=== PATIENT | male | born 1995 | race Two or more races ===

== ENCOUNTER 2021-03-22 01:42 | Emergency (ER) | payer OTHER, MEDICAID ==
[~2021-03-22] VITALS: Ht 170.2 cm; Wt 96.2 kg
[2021-03-22 01:44] VITALS: BP 142/79
[2021-03-22] MEDS ORDERED: KETOROLAC 30 MG/ML VIAL IM ONE (02:30)
[2021-03-22] MEDS ORDERED: CYCL-711 PO (03:27)
[2021-03-22] MEDS ORDERED: NAPR-54 PO (03:27)
[2021-03-22 03:38] VITALS: BP 131/83
== END 2021-03-22 03:35 | disposition home or self-care (01) ==
LOC: MED 01:42
DX: S16.1XXA Strain of muscle, fascia and tendon at neck level, initial encounter (principal); M54.50 Low back pain, unspecified; Z88.0 Allergy status to penicillin; Z79.899 Other long term (current) drug therapy; Z98.890 Other specified postprocedural states; V89.2XXA Person injured in unspecified motor-vehicle accident, traffic, initial encounter; Y93.89 Activity, other specified; Y92.89 Other specified places as the place of occurrence of the external cause; Y99.8 Other external cause status
CPT/HCPCS: 72040; 72100; 96372; 99284; J1885

== ENCOUNTER 2021-04-16 14:38 | Emergency (ER) | payer MEDICAID, OTHER ==
[~2021-04-16] VITALS: Ht 170.2 cm; Wt 99.8 kg
[~2021-04-16 14:38] MED LIST: CYCL-711 PO; NAPR-54 PO
[2021-04-16 16:05] VITALS: BP 156/75
--- NOTE | 2021-04-16 16:12 | NUR ---
Pt to chair C
[2021-04-16] MEDS ORDERED: ERYT5OIN51 OP (17:01)
--- NOTE | 2021-04-16 17:17 | NUR ---
Patient discharged with v/s stable. Written and verbal after care instructions given and explained. Patient alert, oriented and verbalized understanding of instructions. Ambulatory with steady gait. All questions addressed prior to discharge. ID band removed. Patient advised to follow up with PMD. Rx of Erythromycin Base given. Patient educated on indication of medication including possible reaction and side effects. Opportunity to ask questions provided and answered.
--- NOTE | 2021-04-16 17:18 | NUR ---
NO NURSING INTERVENTIONS PERFORMED
== END 2021-04-16 17:17 | disposition home or self-care (01) ==
LOC: MED 14:38
DX: H00.012 Hordeolum externum right lower eyelid (principal); Z88.0 Allergy status to penicillin
CPT/HCPCS: 99283